=== PATIENT | female | born 1990 | race Two or more races ===

== ENCOUNTER 2020-05-13 16:56 | Emergency (ER) | payer MEDICAID, OTHER ==
[~2020-05-13] VITALS: Ht 157.5 cm; Wt 63.5 kg
[2020-05-13 17:01] VITALS: BP 138/92
[2020-05-13] MEDS ORDERED: TETANUS-DIPTH-ACEL PERTUSSIS 0.5ML SYR Tdap IM ONE (19:15)
[2020-05-13] MEDS ORDERED: cefTRIAXone SOD 1,000 MG VL IM ONE (19:15)
[2020-05-13] MEDS ORDERED: KETOROLAC TROMETH 60MG/2ML VIAL IM ONE (19:30)
[2020-05-13] MEDS ORDERED: NEOMYCIN-BACITRACIN-POLYM UNITDOSE PKG TOP OINT TOP ONE (20:15)
== END 2020-05-13 20:34 | disposition home or self-care (01) ==
LOC: ER 16:56
DX: S01.511A Laceration without foreign body of lip, initial encounter (principal); Y04.0XXA Assault by unarmed brawl or fight, initial encounter; Y93.89 Activity, other specified; Y92.89 Other specified places as the place of occurrence of the external cause; Y99.8 Other external cause status
CPT/HCPCS: 12011; 90471; 90715; 96372; 99284; J0696; J1885; J2001